=== PATIENT | female | born 1980 | race African-American/Black ===

== ENCOUNTER → 2020-06-28 | Emergency (ER) | payer BC ==
[~2020-06-28] VITALS: Ht 160 cm; Wt 74.8 kg
[~2020-06-28] MED LIST: BACTRIM DS TAB1 EACH PO; CHLORASEPTIC MA30 ML PO; CHLORASEPTIC S1 EACH PO; CIPROFLOXACIN500 M1 PO; NOHOMEMEDICATIONS; PYRIDIUM200 MG PO
[2020-06-28 00:41] VITALS: BP 157/85
== END ==
LOC: ER 00:37
DX: J02.9 Acute pharyngitis, unspecified (principal)